=== PATIENT | female | born 1970 | race Two or more races ===

== ENCOUNTER → 2025-04-22 | Outpatient (CLI) | payer MEDICAID, SELFPAY ==
--- NOTE | 2025-04-22 12:30 | XR_ITS ---
Examination: Breast ultrasound complete, bilateral Date and time of exam: April 22, 2025 1302 hours INDICATIONS: Left breast pain with palpable breast lump 2:00 position note is beginning 4 months ago, family history breast cancer, mother Technique: Real-time grayscale ultrasonographic imaging bilateral breasts, including all 4 quadrants as well as nipple retroareolar and axillary regions. Findings: Sonographic images right breast 10:00 oval mass lobular margins 6 x 6 x 11 mm Sonographic images left breast 12:00 nodule circumscribed 5 x 4 mm 2:00 nodule circumscribed 5 x 3 mm 9:00 nodule circumscribed 11 x 10 mm IMPRESSION: BI-RADS Category 3: Probably benign findings One additional 6 month bilateral breast sonography follow-up strongly recommended to document stability of solid nodules described above
--- NOTE | 2025-04-22 13:30 | XR_ITS ---
Examination: Diagnostic digital mammography, bilateral Computer aided detection 3-D breast Tomosynthesis, bilateral Date and time of exam: April 23, 2025 1255 hours INDICATIONS: Lump in the left breast on clinical breast examination by physician 4 months ago, family history mother breast cancer Technique: Nonmagnified MLO, CC views of the breasts to been obtained, reconstructed from 3-D Tomosynthesis images. R2 computer aided detection program utilized for evaluation of suspicious masses and/or abnormal calcifications. 3-D Tomosynthesis images obtained. Findings: 14 mm nodule 12:00 position right breast posterior depth 16 mm focal asymmetry upper left breast MLO view, 10.6 cm from the nipple Impression: BI-RADS Category 3: Probably benign findings One additional 6 month bilateral mammography follow-up is needed to document stability of 10:00 nodule right breast in 16 mm focal asymmetry upper left breast
== END | disposition home or self-care (01) ==
LOC: CDIM 12:24
PROVIDERS: PCP Physician Assistant; Referring Provider Physician Assistant; Visit Provider Physician Assistant
DX: N63.25 Unspecified lump in the left breast, overlapping quadrants (principal); N63.21 Unspecified lump in the left breast, upper outer quadrant; N64.89 Other specified disorders of breast; Z80.3 Family history of malignant neoplasm of breast
CPT/HCPCS: 76641; 77062; 77066; G0279

== ENCOUNTER → 2025-11-06 | Outpatient (CLI) | payer MEDICAID, SELFPAY ==
--- NOTE | 2025-11-06 09:00 | XR_ITS ---
Examination: Breast ultrasound complete, bilateral Date and time of exam: November 06, 2025, 0915 hours INDICATIONS: Mammogram April 23, 2025 4 mm nodule 12 o'clock position right breast 16 mm focal asymmetry upper left breast 10.6 cm from the nipple Technique: Real-time grayscale ultrasonographic imaging bilateral breasts, including all 4 quadrants as well as nipple retroareolar and axillary regions. Findings: Sonographic images right breast 12:00 nodule versus glandular tissue 8 x 5 mm 10:00 nodule lobular margins 7 x 11 mm Sonographic images left breast 12:00 glandular tissue 16 x 16 mm 2:00 nodule lobular margins 4 x 4 mm 9:00 nodule circumscribed 10 x 6 mm IMPRESSION: BI-RADS Category 3: Probably benign findings Continued 6-month follow-up bilateral breast sonography strongly advised
--- NOTE | 2025-11-06 10:00 | XR_ITS ---
Examination: Diagnostic digital mammography, bilateral Computer aided detection 3-D breast Tomosynthesis, bilateral Date and time of exam: November 06, 2025, 1008 hours INDICATIONS: Mammogram April 23, 2025 14 mm nodule 12 o'clock position right breast 16 mm focal asymmetry upper left breast MLO view 10.6 cm from the nipple Technique: Nonmagnified MLO, CC views of the breasts to been obtained, reconstructed from 3-D Tomosynthesis images. R2 computer aided detection program utilized for evaluation of suspicious masses and/or abnormal calcifications. 3-D Tomosynthesis images obtained. Findings: The breasts are heterogeneously dense, which may obscure small masses Nodular asymmetry remains upper outer right breast posterior depth The nodular asymmetry upper left breast MLO view 10 cm from the nipple is not confirmed on the spot compression views Impression: BI-RADS Category 3: Probably benign findings Recommend 1 additional 6-month right mammogram follow-up Please see the bilateral breast sonography report today recommending 6-month bilateral breast sonography follow-up.
== END | disposition home or self-care (01) ==
PROVIDERS: PCP Family Medicine; Referring Provider Family Medicine; Visit Provider Family Medicine
DX: R92.333 Mammographic heterogeneous density, bilateral breasts (principal); R92.8 Other abnormal and inconclusive findings on diagnostic imaging of breast
CPT/HCPCS: 76641; 77062; 77066; G0279